=== PATIENT | male | born 2000 | race Caucasian/White ===

== ENCOUNTER 2022-08-05 10:29 | Emergency (ER) | payer SELFPAY ==
[~2022-08-05] VITALS: Ht 177.8 cm; Wt 113.4 kg
== END 2022-08-05 16:26 | disposition home or self-care (01) ==
LOC: ED 10:29
DX: R51.9 Headache, unspecified (principal); J34.1 Cyst and mucocele of nose and nasal sinus; Z91.018 Allergy to other foods
CPT/HCPCS: 36415; 70450; 80053; 85025; 96361; 96374; 96375; 99284-25; J1200; J2765; J7030